=== PATIENT | male | born 1960 | race Caucasian/White ===

== ENCOUNTER → 2016-11-26 | Outpatient (CLI) | payer OTHER ==
--- NOTE | 2016-11-26 21:07 | Diagnostic Imaging Report ---
PROCEDURE: CT abdomen and pelvis without contrast. INDICATION: History of umbilical hernia repair, now with abdominal and pelvic pain. TECHNIQUE: Noncontrast enhanced abdominal and pelvic CT performed. Oral contrast was administered. Images reconstructed in coronal plane. FINDINGS: There is no bowel, biliary, or urinary tract obstruction or dilatation. There are a few noninflamed sigmoid diverticula. There is no extravasation of the oral contrast which has reached the distal large bowel. No evidence for obstruction. No air-fluid levels. No perienteric or pericolonic edema. No pneumatosis or free gas. The liver, gallbladder, adrenals, spleen, and pancreas are unremarkable. The aorta is nonaneurysmal. Some mild mesenteric adenopathy in the upper abdomen, the largest node 1.3 cm in the celiac region and the largest node in the portacaval region elongated with a short axis of 1 cm. No ascites or fluid collection. There are postoperative changes to the periumbilical abdominal wall. No findings of recurrent hernia. IMPRESSION: No bowel, biliary, or urinary tract obstruction. No opaque stone or inflammatory reaction. Some shotty adenopathy in the right upper quadrant mesentery of uncertain significance. No convincing evidence for an acute abnormality. Dictated by: Dictated on workstation # [id number]
== END ==
LOC: RAD 13:10
PROVIDERS: ATTEND Nurse Practitioner Family
DX: R10.11 Right upper quadrant pain (principal); R10.31 Right lower quadrant pain; R19.7 Diarrhea, unspecified; R11.0 Nausea
CPT/HCPCS: 74176

== ENCOUNTER 2016-12-02 05:30 | Outpatient (CLI) | payer OTHER ==
[~2016-12-02] VITALS: Ht 185.4 cm; Wt 126.6 kg
== END 2016-12-02 12:07 ==
LOC: PREOP 05:30
PROVIDERS: ATTEND Surgery
DX: Z01.818 Encounter for other preprocedural examination (principal); R10.84 Generalized abdominal pain; R19.7 Diarrhea, unspecified

== ENCOUNTER 2016-12-08 10:46 | Day surgery (SDC) | payer OTHER ==
[2016-12-08 10:05] VITALS: BP 120/80
--- NOTE | 2016-12-08 10:59 | Conscious Sedation/ASA ---
Conscious Sedation Pre-Proced Time Reviewed: 10:50 ASA Class: 2 Airway Mallampati Classification: ([place] appropriate class) I. II. III, IV Lungs Heart ASA score ASA 1: a normal healthy patient ASA 2: a patient with a mild systemic disease (mid diabetes, controlled hypertension, obesity ASA 3: a patient with a severe systemic disease that limits activity (angina , COPD, prior Myocardial infarction) ASA 4: a patient with an incapacitating disease that is a constant threat to life (CHF, renal failure) ASA 5: a moribund patient not expected to survive 24 hrs. (ruptured aneurysm) ASA 6: a declared brain patient whose organs are being harvested. For emergent operations, add the letter E after the classification Grade 3 Sedation Plan: Analgesia, Amnesia, Plan communicated to team members, Discussed options with patient/fam, Discussed risks with patient/fam Note The patient is an appropriate candidate to undergo the planned procedure, sedation, and anesthesia. The patient immediately re-assessed prior to indication. CHIKA HANLEY MD Dec 08, 2016 10:59 am
[2016-12-08] MEDS ORDERED: HYDROcodone/APAP 5 MG/325 MG (LORTAB) TAB PO PRN (11:00)
[2016-12-08] MEDS ORDERED: NS IV 500 ML 500 ML IV PRN (11:00)
[2016-12-08] MEDS ORDERED: morphine INJ 10 MG/ML 1ML (SYR OR VIAL) IV PRN (11:00)
[2016-12-08] MEDS ORDERED: LIDOCAINE JELLY 2% (XYLOCAINE) 5 ML TUBE MM PRN (11:00)
[2016-12-08] MEDS ORDERED: ACETAMINOPHEN 325 MG TABLET/CAPLET (TYLENOL) PO PRN (11:00)
[2016-12-08] MEDS ORDERED: ONDANSETRON 4 MG/2 ML (SDV) Z0FRAN IV PRN (11:00)
--- NOTE | 2016-12-08 11:00 | Progress Note-Pre Operative ---
Pre-Operative Progress Note H&P Reviewed The H&P was reviewed, patient examined and no changes noted. Date Seen by Provider: Dec 08, 2016 Time Seen by Provider: 10:50 Date H&P Reviewed: Dec 08, 2016 Time H&P Reviewed: 10:50 Pre-Operative Diagnosis: hx diverticulitis CHIKA HANLEY MD Dec 08, 2016 11:00 am
[2016-12-08] MEDS ORDERED: LIDOCAINE JELLY 2% (XYLOCAINE) 5 ML TUBE ONE (11:29)
[2016-12-08] MEDS ORDERED: fentaNYL INJECTION 100 MCG/2 ML AMP ONE ×2 (11:29→11:48)
[2016-12-08] MEDS ORDERED: MIDAZOLAM 2 MG/2 ML (VERSED) VIAL ONE ×5 (11:30→11:48)
[2016-12-08] MEDS: MIDAZOLAM 2 MG/2 ML (VERSED) VIAL IVP PRN ×5 (11:45→12:15)
[2016-12-08] MEDS: fentaNYL INJECTION 100 MCG/2 ML AMP IVP PRN ×4 (11:46→12:14)
[2016-12-08 12:40] VITALS: BP 117/62
[2016-12-08 13:10] VITALS: BP 109/70
--- NOTE | 2016-12-08 13:10 | Progress Note-Post Operative ---
Post-Operative Progess Note Surgeon (s)/Mink Rancher (s) Surgeon CHIKA HANLEY MD Mink Rancher: none Pre-Operative Diagnosis hx diverticulitis Post-Operative Diagnosis chronic stage 2 ext and int hemorrhoids. Procedure & Operative Findings Date of Procedure 12/08/16 Procedure Performed/Findings Colonoscopy. Anesthesia Type CS Estimated Blood Loss Estimated blood loss (mL): minimal Specimens/Packing Specimens Removed none CHIKA HANLEY MD Dec 08, 2016 1:10 pm
--- NOTE | 2016-12-08 13:11 | Discharge Inst-Surgical ---
D/C Lap Instructions-DAYAN Follow Up PRN Activity as tolerated High Fiber Diet 25g or more per day Avoid Alcohol, Caffeine, Spicy [place] and Acid foods. Drink 64 fluid oz or more of fluids per day. Symptoms to Report: Fever over 101 degree F, Nausea/Vomiting If any problems/questions: Contact your physician or go to Emergency Room CHIKA HANLEY MD Dec 08, 2016 1:11 pm
[2016-12-08 13:20] VITALS: BP 109/70
--- NOTE | 2016-12-08 22:17 | OPERATIVE REPORT ---
DATE OF SERVICE: 12/08/2016 PREOPERATIVE DIAGNOSES: Diarrhea and left lower quadrant abdominal pain. POSTOPERATIVE DIAGNOSIS: Chronic stage II external and internal hemorrhoids. The remainder of the rectum and colon were normal. PROCEDURE: Colonoscopy. SURGEON: Chika Hanley M.D. ANESTHESIA: Conscious sedation. ESTIMATED BLOOD LOSS: Minimal. FINDINGS: Chronic stage II external and internal hemorrhoids, not actively edematous nor inflamed and no bleeding. Prostate gland was palpable and appeared normal. The rectum and colon were normal. There were no diverticula as well as no mucosal inflammatory changes as well as no neoplasms identified. DISPOSITION: The patient tolerated the procedure well. INDICATIONS: The patient is a 56-year-old male who initially presented with some mild discomfort of the lower quadrants of the abdomen in October of this year. He was placed on an antibiotic and he thinks only one antibiotic was prescribed at that time. He reports that over the time, he developed a significant diarrhea as well as more sharp pain in the left lower abdominal quadrant. The dehydration did cause him to feel significantly weak. He then presented to the Emergency Department where a CT scan was performed, which did show some mild inflammation of the colon near the sigmoid colon. He reports having a colonoscopy in the past and believes that to be normal. DESCRIPTION OF PROCEDURE: The patient was brought to the endoscopy suite, laid in the left lateral decubitus position. After adequate IV pain and sedative medications and conscious sedation anesthesia, a digital rectal examination was performed. Mild chronic stage II external and internal hemorrhoids were identified, which were not actively edematous nor inflamed and no bleeding. Normal sphincter tone was felt and there were no palpable masses. Prostate gland was palpable and appeared normal. The endoscope was then intubated into the anus and rectum and gently insufflated. The endoscope was then advanced to the valves of [place] in the rectum with no polyps or any neoplasms identified as well as no mucosal inflammatory changes. The endoscope was then advanced to the sigmoid colon where no diverticulosis identified as well as again no mucosal inflammatory changes. The endoscope was then advanced through the remainder of the descending, transverse and ascending colon to the cecum. These segments were normal as well. There were no polyps, neoplasms or any mucosal inflammatory changes to indicate any colitis or any proctitis. The endoscope was then slowly withdrawn and taking a second look and suctioning all residual air with no additional findings. The patient tolerated the procedure well. We feel that the majority of his symptoms were related to bacterial overgrowth causing the diarrhea and dehydration. With dehydration, this could have contributed to a low-flow state in the mesenteric vessels causing the colitis identified on the CT scan upon presentation to the Emergency Department. The colonoscopy did not show any mucosal inflammatory changes to indicate any active colitis or any inflammatory bowel disease. There were also no polyps identified. We will recommend continued medical management with proper hydration and a high-fiber diet with at least 30 grams of fiber per day. He does not need another colonoscopy for another 10 years; however, sooner if any problems arise. Job ID: [id number] DocumentID: [id number] Dictated Date: 12/08/2016 13:10:20 Mold Clamper Date: 12/08/2016 22:16:14 Dictated By: CHIKA HANLEY MD
== END 2016-12-08 13:20 | disposition home or self-care (01) ==
LOC: ENDO 10:46
PROVIDERS: ATTEND Surgery
DX: K64.1 Second degree hemorrhoids (principal); R10.32 Left lower quadrant pain; R19.7 Diarrhea, unspecified; K27.9 Peptic ulcer, site unspecified, unspecified as acute or chronic, without hemorrhage or perforation